=== PATIENT | male | born 1945 | race Caucasian/White ===

== ENCOUNTER 2017-10-09 10:14 | Inpatient (IN) | END 2017-10-11 18:40 | disposition home or self-care (01) | DRG 313 ==

== ENCOUNTER 2018-08-13 12:42 | Inpatient (IN) | END 2018-08-14 14:34 | disposition home or self-care (01) | DRG 641 ==

== ENCOUNTER 2019-06-29 07:10 | Inpatient (IN) | payer OTHER ==
[~2019-06-29] VITALS: Ht 175.3 cm; Wt 68.7 kg
[~2019-06-29 07:10] MED LIST: AMLO-147 PO; AMLO-218 PO; ASPI-817 PO; ASPI-903 PO; ATOR40TA68 PO; CHOL100062 PO; CILO50TA PO; CLOP75TA19 PO; CLOP75TA27 PO; CYAN100T35 PO; DOCU-159 PO; GLIP10TA14 PO; IRON1TAB78 PO; LATA2.5D2 BOTH EYES; LISI-471 PO; LISI10TA2 PO; METF100010 PO; METO-319 PO; NATE120T PO; NITR0.4T32 SL; OLOP2.5D BOTH EYES; RAMI10CA PO; SITA100T11 PO; SPIR25TA PO; TAMS0.4C2 PO; TICA90TA PO
[2019-06-29 07:12] VITALS: Ht 175.3 cm; Wt 68.7 kg
[2019-06-29] MEDS ORDERED: ASPIRIN 81 MG TAB PO STA (07:16)
[2019-06-29] MEDS ORDERED: NITROGLYCERIN 2% 1 GM OINT PKT TD STA (07:16)
[2019-06-29] MEDS ORDERED: NITROGLYCERIN (SL) 0.4 MG TAB SL PRN ×2 (07:30→13:00)
[2019-06-29] MEDS ORDERED: ACETAMINOPHEN 325 MG TAB PO PRN ×2 (10:00→13:00)
[2019-06-29] MEDS ORDERED: ONDANSETRON 4 MG INJ IV PRN ×2 (10:00→13:00)
[2019-06-29] MEDS ORDERED: morphine 2 MG INJ IV PRN (13:00)
[2019-06-29] MEDS ORDERED: DOCUSATE SODIUM 100 MG CAP PO PRN (13:00)
[2019-06-29] MEDS ORDERED: NON-FORMULARY/PATIENT OWN MED (Sitagliptin* (Januvia*) 100 MG) PO SCH (13:00)
[2019-06-29] MEDS ORDERED: OLOPATADINE 0.2% (ONCE A DAY) OPHTH DROP 2.5 ML BOTH EYES SCH (13:00)
[2019-06-29] MEDS ORDERED: SPIRONOLACTONE 25 MG TAB PO SCH (13:00)
[2019-06-29] MEDS ORDERED: NACL 0.9% 3 ML SYG IV SCH (13:00)
[2019-06-29] MEDS ORDERED: BISACODYL (EC) 5 MG TAB PO PRN (13:00)
[2019-06-29] MEDS ORDERED: GLUCOSE GEL 15 GRAM TUBE PO PRN ×2 (13:30)
[2019-06-29] MEDS ORDERED: DEXTROSE 50% 50 ML SYRINGE IV PRN ×2 (13:30)
[2019-06-29] MEDS ORDERED: GLUCOSE GEL 15 GRAM TUBE BUCCAL PRN (13:30)
[2019-06-29] MEDS ORDERED: GLUCAGON 1 MG INJ IM PRN (13:30)
[2019-06-29] MEDS ORDERED: SOD CHLORIDE 0.9% 1,000 ML IV SCH (14:00)
[2019-06-29] MEDS: OLOPATADINE 0.1% 5 ML OPH BOTH EYES SCH ×2 (14:34→23:00)
[2019-06-29] MEDS: LINAGLIPTIN 5 MG TABLET PO SCH (14:34)
[2019-06-29] MEDS: METOPROLOL (XL) 50 MG TAB PO SCH (14:34)
[2019-06-29] MEDS: INSULIN GLARGINE [LANTus] (100 UNITS/ML) SYG SC SCH (14:39)
[2019-06-29 16:52] VITALS: BP 137/77; PULSE 72; RESP 18
[2019-06-29] MEDS: INSULIN ASPART [NOVOLOG] 3 ML PEN SC SCH ×3 (17:59→20:14)
[2019-06-29 20:00] VITALS: BP 115/66; PULSE 69; RESP 19
[2019-06-29] MEDS: ATORVASTATIN 40 MG TAB PO SCH (20:13)
[2019-06-29] MEDS: LATANOPROST 0.005% 2.5 ML OPH BOTH EYES SCH (20:13)
[2019-06-29] MEDS: FAMOTIDINE 20 MG TAB PO SCH (20:13)
[2019-06-29 23:47] VITALS: BP 119/69; RESP 18
[2019-06-30] MEDS: ACCU-CHEK XX SCH (02:48)
[2019-06-30 04:15] VITALS: BP 116/59; PULSE 70; RESP 19
[2019-06-30 07:45] VITALS: BP 119/71; PULSE 61; RESP 22
[2019-06-30] MEDS: INSULIN ASPART [NOVOLOG] 3 ML PEN SC SCH ×7 (08:00→21:00)
[2019-06-30] MEDS: INSULIN GLARGINE [LANTus] (100 UNITS/ML) SYG SC SCH (08:37)
[2019-06-30] MEDS: OLOPATADINE 0.1% 5 ML OPH BOTH EYES SCH ×2 (08:38→21:04)
[2019-06-30] MEDS ORDERED: AMLODIPINE 10 MG TAB PO SCH (09:00)
[2019-06-30] MEDS ORDERED: ENOXAPARIN 40 MG/0.4 ML SYG SC SCH (09:00)
[2019-06-30] MEDS: CLOPIDOGREL 75 MG TAB PO SCH (10:28)
[2019-06-30] MEDS: LISINOPRIL 10 MG TAB PO SCH (10:29)
[2019-06-30] MEDS: LINAGLIPTIN 5 MG TABLET PO SCH (10:29)
[2019-06-30] MEDS: METOPROLOL (XL) 50 MG TAB PO SCH (10:29)
[2019-06-30] MEDS: ASPIRIN 81 MG TAB PO SCH (10:29)
[2019-06-30] MEDS: FAMOTIDINE 20 MG TAB PO SCH ×2 (10:34→21:04)
[2019-06-30 11:58] VITALS: BP 110/55; PULSE 74; RESP 22
[2019-06-30 15:14] VITALS: BP 108/65; PULSE 61; RESP 22
[2019-06-30 20:00] VITALS: BP 105/59; PULSE 65; RESP 22
[2019-06-30] MEDS: ATORVASTATIN 40 MG TAB PO SCH (21:03)
[2019-06-30] MEDS: LATANOPROST 0.005% 2.5 ML OPH BOTH EYES SCH (21:35)
[2019-06-30 23:42] VITALS: BP 108/64; PULSE 63; RESP 21
[2019-07-01] VITALS (20 sets, daily range): BP systolic 91–133; BP diastolic 50–73; PULSE 54–68; RESP 11–20
[2019-07-01] MEDS: ACCU-CHEK XX SCH (02:00)
[2019-07-01] MEDS ORDERED: DIPHENHYDRAMINE 50 MG CAP PO ONE (08:00)
[2019-07-01] MEDS ORDERED: DIAZEPAM 5 MG TAB PO ONE (08:00)
[2019-07-01] MEDS: OLOPATADINE 0.1% 5 ML OPH BOTH EYES SCH ×2 (08:21→21:03)
[2019-07-01] MEDS: LINAGLIPTIN 5 MG TABLET PO SCH (08:22)
[2019-07-01] MEDS: FAMOTIDINE 20 MG TAB PO SCH ×2 (08:22→20:01)
[2019-07-01] MEDS: ASPIRIN 81 MG TAB PO SCH (08:22)
[2019-07-01] MEDS: CLOPIDOGREL 75 MG TAB PO SCH (08:22)
[2019-07-01] MEDS: LISINOPRIL 10 MG TAB PO SCH (08:23)
[2019-07-01] MEDS: METOPROLOL (XL) 50 MG TAB PO SCH (08:24)
[2019-07-01] MEDS: INSULIN GLARGINE [LANTus] (100 UNITS/ML) SYG SC SCH (08:26)
[2019-07-01] MEDS ORDERED: INSULIN ASPART [NOVOLOG] 3 ML PEN SC SCH (09:00)
[2019-07-01] MEDS: INSULIN ASPART [NOVOLOG] 3 ML PEN SC SCH ×3 (11:37→21:11)
[2019-07-01] MEDS ORDERED: LIDOCAINE 1% (MDV) 20 ML INJ ONE (12:27)
[2019-07-01] MEDS ORDERED: HEPARIN 1000 UNITS/ML 10 ML INJ ONE (12:27)
[2019-07-01] MEDS ORDERED: NITROGLYCERIN (IC) 100 MCG/ML INJ ONE (12:27)
[2019-07-01] MEDS ORDERED: VERAPAMIL 5 MG INJ ONE (12:27)
[2019-07-01] MEDS ORDERED: IODIXANOL LOCM 100 ML BTL ONE ×2 (12:27→14:24)
[2019-07-01] MEDS ORDERED: FENTAnyl 50 MCG/ML VIAL ONE (12:35)
[2019-07-01] MEDS ORDERED: MIDAZOLAM 1 MG/ML 2 ML INJ ONE (12:35)
[2019-07-01] MEDS ORDERED: IOHEXOL 350MG/ML 50 ML BTL ONE (13:13)
[2019-07-01] MEDS ORDERED: BIVALIRUDIN 250MG /NS 50 ML 50 ML IVPB ONE ×2 (13:13→14:25)
[2019-07-01] MEDS ORDERED: niCARdipine 25 MG INJ ONE (13:20)
[2019-07-01] MEDS ORDERED: DOPamine-D5W 1.6 MG/ML 250 ML ONE (13:59)
[2019-07-01] MEDS ORDERED: ASPIRIN 325 MG TAB ONE (14:54)
[2019-07-01] MEDS ORDERED: CLOPIDOGREL 300 MG TAB ONE (14:54)
[2019-07-01] MEDS ORDERED: BIVALIRUDIN 250MG /NS 50 ML 50 ML IVPB SCH (14:57)
[2019-07-01] MEDS ORDERED: morphine 2 MG INJ IV PRN (15:00)
[2019-07-01] MEDS ORDERED: ACETAMINOPHEN 325 MG TAB PO PRN (15:00)
[2019-07-01] MEDS ORDERED: AL HYDROX/MG HYDROX/SIMETH 30 ML CUP PO PRN (15:00)
[2019-07-01] MEDS ORDERED: ONDANSETRON 4 MG INJ IV PRN (15:00)
[2019-07-01] MEDS: SOD CHLORIDE 0.9% 1,000 ML IV SCH ×2 (17:00→19:36)
[2019-07-01] MEDS: ATORVASTATIN 40 MG TAB PO SCH (20:01)
[2019-07-01] MEDS: OXYCODONE/ACETAMINOPHEN (5/325) TAB PO PRN (20:18)
[2019-07-01] MEDS: LATANOPROST 0.005% 2.5 ML OPH BOTH EYES SCH (21:03)
[2019-07-02] VITALS (17 sets, daily range): BP systolic 94–130; BP diastolic 46–74; PULSE 51–75; RESP 12–22
[2019-07-02] MEDS: OXYCODONE/ACETAMINOPHEN (5/325) TAB PO PRN ×2 (01:34→06:25)
[2019-07-02] MEDS: ACCU-CHEK XX SCH (02:06)
[2019-07-02] MEDS: INSULIN ASPART [NOVOLOG] 3 ML PEN SC SCH ×2 (07:35→12:38)
[2019-07-02] MEDS ORDERED: INSULIN GLARGINE [LANTus] (100 UNITS/ML) SYG SC SCH (08:00)
[2019-07-02] MEDS ORDERED: CLOPIDOGREL 75 MG TAB PO SCH (09:00)
[2019-07-02] MEDS ORDERED: ASPIRIN (EC) 81 MG TAB PO SCH (09:00)
[2019-07-02] MEDS ORDERED: DOCUSATE SODIUM 100 MG CAP PO SCH (09:30)
[2019-07-02] MEDS ORDERED: SENNA TAB PO SCH (09:30)
[2019-07-02] MEDS ORDERED: POLYETHYLENE GLYCOL 17 GM PACKET PO SCH (09:30)
[2019-07-02] MEDS: LISINOPRIL 10 MG TAB PO SCH (09:54)
[2019-07-02] MEDS: FAMOTIDINE 20 MG TAB PO SCH (09:55)
[2019-07-02] MEDS: OLOPATADINE 0.1% 5 ML OPH BOTH EYES SCH (09:55)
[2019-07-02] MEDS: LINAGLIPTIN 5 MG TABLET PO SCH (09:55)
[2019-07-02] MEDS: METOPROLOL (XL) 50 MG TAB PO SCH (09:56)
[2019-07-02] MEDS ORDERED: ATORVASTATIN 40 MG TAB PO SCH (21:00)
== END 2019-07-02 16:30 | disposition home or self-care (01) | DRG 247 ==
LOC: E/R 07:10 → 6WM 09:40 → OBSVTOIN 07-01 09:30 → ICU 07-01 16:20
PROVIDERS: ADMIT Internal Medicine; ATTEND Internal Medicine
PROC: B211YZZ Fluoroscopy of Multiple Coronary Arteries using Other Contrast (ICD-10-PCS; 2019-07-01)
PROC: 027036Z Dilation of Coronary Artery, One Artery with Three Drug-eluting Intraluminal Devices, Percutaneous Approach (ICD-10-PCS; principal; 2019-07-01 10:30)
PROC: 4A023N7 Measurement of Cardiac Sampling and Pressure, Left Heart, Percutaneous Approach (ICD-10-PCS; 2019-07-01 10:30)
DX: I25.10 Atherosclerotic heart disease of native coronary artery without angina pectoris (principal); E87.1 Hypo-osmolality and hyponatremia; I25.82 Chronic total occlusion of coronary artery; D64.9 Anemia, unspecified; E78.5 Hyperlipidemia, unspecified; E87.8 Other disorders of electrolyte and fluid balance, not elsewhere classified; E11.51 Type 2 diabetes mellitus with diabetic peripheral angiopathy without gangrene; E11.65 Type 2 diabetes mellitus with hyperglycemia; I10 Essential (primary) hypertension; N42.9 Disorder of prostate, unspecified; R94.31 Abnormal electrocardiogram [ECG] [EKG]; I25.2 Old myocardial infarction; Z95.5 Presence of coronary angioplasty implant and graft; Z79.02 Long term (current) use of antithrombotics/antiplatelets; Z79.84 Long term (current) use of oral hypoglycemic drugs; Z79.82 Long term (current) use of aspirin
CPT/HCPCS: 36415; 71045; 76705; 80048; 80053; 80061; 82550; 82553; 82652; 82962; 83036; 83735; 83880; 83930; 83935; 84100; 84300; 84443; 84484; 85025; 85610; 87081; 93005; 93306; 93458; G0378; C1725; C1874; C1887; C9607; J0583; J1265; J1644; J1650; J1815; J2250; J3010; J7030; Q9967